=== PATIENT | male | born 1970 | race Caucasian/White ===

== ENCOUNTER 2023-10-06 15:39 | Inpatient (IN) | payer SELFPAY ==
[2023-10-06] VITALS (15 sets, daily range): BP systolic 113–159; BP diastolic 79–94; PULSE 76–98; RESP 12–18; TEMP 36.4–36.8; O2SAT 88–98; BMI 27.1; BMI 27.3
--- NOTE | 2023-10-06 15:45 | XRR_ITS ---
PROCEDURE INFORMATION: Exam: XR Chest Exam date and time: 10/06/2023 4:05 PM Age: 52 years old Clinical indication: Cough and dyspnea; Additional info: Dyspnea/cough TECHNIQUE: Imaging protocol: Radiologic exam of the chest. Views: 1 view. COMPARISON: No relevant prior studies available. FINDINGS: Tubes, catheters and devices: Overlying monitor leads. Lungs: Pulmonary vascularity is within limits. Small amount of opacity lateral left lung base. No focal infiltrate or consolidation otherwise. Pleural spaces: Unremarkable. No pleural effusion. No pneumothorax. Heart/Mediastinum: Unremarkable. No cardiomegaly. Bones/joints: Visualized osseous structures show no acute abnormality. XR/XR chest 1V portable [id number] IMPRESSION: 1. Small amount opacity lateral left lung base could indicate mild left basilar atelectasis/infiltrate. 2. No acute findings otherwise.
--- NOTE | 2023-10-06 15:46 | ECG_ITS ---
[facility] Test Date: 2023-10-06 Pat Name: Olman Bartholomew Department: Room: Gender: Male Nurse Healthcare Manager: : 1970 Requested By: Sean Umaña Order Number: [id number] Mariann MD: Servando Ahuja M.D. Measurements Intervals [place] Rate: 84 P: 74 NM: 162 QRS: 71 QRSD: 96 T: 75 QT: 350 QTc: 415 Interpretive Statements SINUS RHYTHM No previous ECG available for comparison Electronically Signed On 10-06-2023 18:37:12 CDT by Servando Ahuja M.D. [id number]
--- NOTE | 2023-10-06 15:52 | ED_ITS ---
HPI - Chest Pain 2 General: Chief Complaint: Chest Pain Stated Complaint: abd/chest pain Time Seen by Provider: 10/06/23 15:45 History of Present Illness: 52-year-old male presents emergency room complaining of chest and abdominal pain. His biggest complaint is left upper quadrant abdominal pain he states he thinks he may have been bitten by a spider on his left lateral chest wall. Patient is very anxious. Patient appears to be out of the foot of alcohol admits to drinking 7-8 beers a day minimum often drinking heavier has been drinking more recently because he lost his job. No fever sweats or chills. Patient notices pain is worse with deep inspiration Associated symptoms: Reports abdominal pain and nausea; Deny dyspnea or fever(s) Related Data Home Medications Medication Instructions Recorded Confirmed albuterol sulfate 90 mcg/actuation 2 puff inhalation QID 10/06/23 10/06/23 aerosol inhaler clonidine HCl 0.1 mg tablet 0.1 mg PO TID 10/06/23 10/06/23 Previous Rx's Medication Instructions Recorded doxycycline monohydrate 100 mg 100 mg PO BID #1 tab 10/09/23 tablet folic acid 1 mg tablet 1 mg PO DAILY #30 tabs 10/09/23 losartan 50 mg tablet 50 mg PO DAILY #30 tabs 10/09/23 pantoprazole 40 mg tablet,delayed 40 mg PO BID #60 tabs 10/09/23 release thiamine mononitrate (vit B1) 100 100 mg PO DAILY #30 tabs 10/09/23 mg tablet (Vitamin B-1 (mononitrate)) Allergies Allergy/AdvReac Type Severity Reaction Status Date / Time amoxicillin Allergy ALGY-Anaphy Verified 10/06/23 15:56 laxis Review of Systems 2 Const: Denies: fever(s) or chills Card: Reports: chest pain; Denies: edema or swelling of feet/ankles Resp: Denies: dyspnea GI: Reports: abdominal pain, nausea and GI cramping; Denies: hematemesis, coffee ground emesis or diarrhea : Denies: dysuria, urinary frequency or urinary urgency Musc: Denies: neck pain or back pain Skin/Breast: Denies: rash PFSH ED 2 PFSH: Medical History Pancreatitis Surgical History Hx of inguinal hernia surgery Physical Exam 2 Const: COMMON NORMALS: no acute distress GENERAL APPEARANCE: cooperative and comfortable ORIENTATION/CONSCIOUSNESS: Yes awake, Yes oriented to person, Yes oriented to place and Yes oriented to time HENMT: COMMON NORMALS: normocephalic, atraumatic and hearing grossly normal bilaterally HEAD & SCALP: normocephalic and atraumatic Chest: OTHER: Small irritated area on the left lateral chest wall with dry eschar in place minimal localized erythema no drainage Resp: COMMON NORMALS: normal respiratory effort, No retractions, No use of accessory muscles and clear to auscultation bilaterally AUSCULTATION: clear to auscultation bilaterally Cardio: COMMON NORMALS: regular rate, regular rhythm and No murmurs present (Cardio) RATE: regular rate RHYTHM: regular rhythm GI: COMMON NORMALS: No hepatosplenomegaly present AUSCULTATION: Yes normoactive bowel sounds PALPATION: Yes Tenderness to palpation present (GI), No Guarding due to palpation present (GI) and Yes No hepatosplenomegaly present Extremity: COMMON NORMALS: normal to inspection, capillary refill normal, no clubbing, cyanosis or edema, no calf tenderness and no pedal edema Neuro: SENSORIUM/ORIENTATION: Yes oriented to person, Yes oriented to place and Yes oriented to time Skin: COMMON NORMALS: no rashes or lesions noted GENERAL SKIN EXAM: no rashes or lesions noted Course 2 Vital Signs: Vital signs: Vital Signs Temperature 97.8 F 10/09/23 16:22 Pulse Rate 84 10/09/23 16:22 Respiratory Rate 17 10/09/23 16:22 Blood Pressure 137/89 10/09/23 16:22 Pulse Oximetry 91 10/09/23 16:22 Oxygen Delivery Me thod Room Air 10/09/23 12:00 Oxygen Flow Rate 2 10/07/23 19:43 MDM - Chest Pain Medical Decision Making Patient has acute alcohol induced gastritis and pancreatitis. Will admit n.p.o. IV fluids pain medication. CT showed hepatic steatosis. Patient previously has had a cholecystectomy no other acute pathology beyond of the acute pancreatitis is noted. Blood alcohol is 348. Initial lipase 645. Discussed with hospitalist orders written. [facility] protocol included on admission orders Lab Data I reviewed the patient's lab results. 10/08/23 03:37 10/09/23 03:18 Radiology Impressions Abdomen/Pelvis CT 10/06/23 16:59 IMPRESSION: 1. Previous cholecystectomy. Postsurgical change/mesh anterolateral upper right abdominal wall. 2. Hepatic steatosis. Ill-defined hypodensity anterolateral peripheral margin of the right lobe of the liver adjacent to the region of postsurgical changes of the abdominal wall. This may be artifactual secondary to adjacent postsurgical densities in the abdominal wall versus ill-defined hepatic lesion. Consider follow-up nonemergent hepatic ultrasound to ensure no underlying focal abnormality. 3. Bilateral simple renal cysts. 4. Mild colonic diverticula of the left and sigmoid colon without findings of diverticulitis. 5. Multiple small calcifications of the prostate gland. This can be associated with chronic prostatitis. 6. Appearance of mild thickening of the rectosigmoid colon and stomach is likely related to incomplete distension. 7. Mild opacity within the lateral left lung base on single-view chest is attributed to fat pad without findings of infiltrate/atelectasis or effusion within the visualized lung bases. 8. Degenerative disc disease lumbosacral junction. COMMENTS: Consistent with the [place] [employer]'s Incidental Findings Committee white paper (J Am Krish Radiol 2018): Any incidental renal lesion less than 1 cm or classified as too small to characterize, or any incidental cystic renal lesion characterized as simple-appearing, is likely benign. No follow-up imaging is recommended for these lesions per consensus recommendations based on imaging criteria. Liver Ultrasound 10/07/23 21:34 IMPRESSION: 1. There is coarse increased echotexture of the liver overall. This can be seen with steatosis as well as hepatic disease related changes. Consider hepatobiliary profile studies. 2. The previously described hepatic area of concern on CT is obscured currently on ultrasound. Consider MRI of the abdomen with and without contrast for further evaluation. 3. No free fluid collections are appreciated. Chest X-Ray 10/08/23 10:38 IMPRESSION: The lungs appear hyperinflated; query COPD, asthma or other obstructive lung disease. Laboratory Results WBC 6.01 10^3/uL (3.29-11.43) 10/06/23 16:05 RBC 4.94 10^6/uL (3.85-5.65) 10/06/23 16:05 Hgb 16.90 g/dL (11.27-16.99) 10/06/23 16:05 Hct 47.6 % (37-53) 10/06/23 16:05 MCV 96.4 fl (82-101) 10/06/23 16:05 MCH 34.2 pg (27-33) H 10/06/23 16:05 MCHC 35.5 g/dL (30-55) 10/06/23 16:05 RDW 13.8 % (12.1-15.1) 10/06/23 16:05 Plt Count 218 10^3/cmm (157-399) 10/06/23 16:05 MPV 8.8 fL (7.4-10.4) 10/06/23 16:05 Neut % (Auto) 61.3 % 10/06/23 16:05 Lymph % (Auto) 24.8 % 10/06/23 16:05 [place] % (Auto) 11.5 % 10/06/23 16:05 Eos % (Auto) 0.7 % 10/06/23 16:05 Baso % (Auto) 1.0 % 10/06/23 16:05 Neut # (Auto) 3.69 10^3/uL (1.8-7.7) 10/06/23 16:05 Lymph # (Auto) 1.5 10^3/uL (0.8-4.8) 10/06/23 16:05 [place] # (Auto) 0.7 10^3/uL (0.2-0.9) 10/06/23 16:05 Eos # (Auto) 0.0 10^3/uL (0.0-0.8) 10/06/23 16:05 Baso # (Auto) 0.1 10^3/uL (0.0-0.1) 10/06/23 16:05 Nucleated RBC % (auto) 0 % 10/06/23 16:05 Nucleated RBCs # 0.0 /100WBC 10/06/23 16:05 Sodium 131 mmol/L (136-145) L 10/06/23 16:05 Potassium 4.0 mmol/L (3.5-5.1) 10/06/23 16:05 Chloride 93 mmol/L (98-107) L 10/06/23 16:05 Carbon Dioxide 19 mmol/L (22-29) L 10/06/23 16:05 Anion Gap 23.0 (5-19) H 10/06/23 16:05 BUN 3 mg/dL (6-20) L 10/06/23 16:05 Creatinine 0.7 mg/dL (0.7-1.2) 10/06/23 16:05 GFR Calculation 118.9 mL/min (90-130) 10/06/23 16:05 Glucose 130 mg/dL (65-115) H 10/06/23 16:05 Calculated Osmolality 270 mOsm/kg (285-295) L 10/06/23 16:05 Calcium 8.6 mg/dL (8.5-10.5) 10/06/23 16:05 Total Bilirubin 0.6 mg/dL (0.15-1.2) 10/06/23 16:05 AST 104 U/L (0-40) H 10/06/23 16:05 ALT 76 U/L (0-41) H 10/06/23 16:05 Alkaline Phosphatase 86 U/L (40-130) 10/06/23 16:05 Troponin T Baseline 15 ng/L (0-15) 10/06/23 16:05 Total Protein 7.0 g/dL (6.6-8.7) 10/06/23 16:05 Albumin 4.2 g/dL (3.5-5.2) 10/06/23 16:05 Globulin 2.8 g/dL (1.3-4.6) 10/06/23 16:05 Lipase 645 U/L (13-60) H 10/06/23 16:05 Ethyl Alcohol 348 mg/dL (0-10) H* 10/06/23 16:05 Coronavirus 229E (PCR) Not detected (NOT DETECT) 10/06/23 14:14 SARS-CoV-2 (PCR) Not detected (NOT DETECT) 10/06/23 14:14 All radiology interpretation(s) finalized by discharge Discharge Plan Discharge Patient Disposition: Admitted As Inpatient Admit Provider: Tabatha Cisneros Clinical Impression: Acute pancreatitis, Alcohol intoxication, Alcoholic gastritis Condition: Stable Discharge Diet: Cardiac Discharge Activity: Increase activity as tolerated Coding Level of Care Code ED Textile Examiner for Shilpa Roe
[2023-10-06 16:14] LABS: Basophils # 0.1 10^3/uL (0.0-0.1); Eosinophils % 0.7 %; Hematocrit 47.6 % (37-53); Lymphocytes # 1.5 10^3/uL (0.8-4.8); Lymphocytes % 24.8 %; Mean Corpuscular HGB Conc 35.5 g/dL (30-55); Mean Corpuscular Hemoglobin 34.2 pg (27-33); Mean Corpuscular Volume 96.4 fl (82-101); Mean Platelet Volume 8.8 fL (7.4-10.4); Monocytes # 0.7 10^3/uL (0.2-0.9); Monocytes % 11.5 %; Neutrophils # 3.69 10^3/uL (1.8-7.7); Neutrophils % 61.3 %; Nucleated Red Blood Cells % 0 %; Platelet Count 218 10^3/cmm (157-399); Red Blood Count 4.94 10^6/uL (3.85-5.65); Red Cell Distribution Width 13.8 % (12.1-15.1); White Blood Count 6.01 10^3/uL (3.29-11.43)
[2023-10-06 16:34] LABS: Troponin(5th) Baseline 15 ng/L (0-15)
[2023-10-06 16:36] LABS: Alanine Aminotransferase 76 U/L (0-41); Albumin Level 4.2 g/dL (3.5-5.2); Alkaline Phosphatase 86 U/L (40-130); Aspartate Amino Transferase 104 U/L (0-40); Blood Urea Nitrogen 3 mg/dL (6-20); Calcium 8.6 mg/dL (8.5-10.5); Carbon Dioxide 19 mmol/L (22-29); Chloride 93 mmol/L (98-107); Creatinine Clr Calc Pharmacy 146.2976; Globulin 2.8 g/dL (1.3-4.6); Glomerular Filtration Rate 118.9 mL/min (90-130); Glucose 130 mg/dL (65-115); Osmolality Calculated 270 mOsm/kg (285-295); Sodium 131 mmol/L (136-145); Total Bilirubin 0.6 mg/dL (0.15-1.2)
[2023-10-06 16:48] LABS: Lipase 645 U/L (13-60)
[2023-10-06 16:49] LABS: Alcohol Level 348 mg/dL (0-10)
--- NOTE | 2023-10-06 16:59 | CTR_ITS ---
PROCEDURE INFORMATION: Exam: CT Abdomen And Pelvis Without Contrast Exam date and time: 10/06/2023 5:05 PM Age: 52 years old Clinical indication: Abdominal pain; Localized; Right upper quadrant (ruq); Prior surgery; Surgery date: 6+ months; Surgery type: Gb TECHNIQUE: Imaging protocol: Computed tomography of the abdomen and pelvis without contrast. Radiation optimization: All CT scans at this facility use at least one of these dose optimization techniques: automated exposure control; mA and/or kV adjustment per patient size (includes targeted exams where dose is matched to clinical indication); or iterative reconstruction. COMPARISON: CR XR chest 1V portable [id number] 10/06/2023 4:05 PM RADIATION DOSE METRICS: Total DLP (mGy-cm): 646.73 FINDINGS: Lungs: No significant atelectasis or infiltrate or effusion is seen within the visualized lung bases, particularly on the left as questioned on single-view chest. Findings on single-view chest likely related to fat pad therefore. Liver: Suggestion of fatty infiltration of the liver. Ill-defined hypodensity is seen anterolateral peripheral margin of the liver adjacent to postsurgical change or mesh within the abdominal wall. This may be artifactual versus ill-defined hepatic lesion. Anterior to posterior diameter of the right lobe of the liver is 20 cm, suggesting mild enlargement of the liver. Gallbladder and biliary ducts: Previous cholecystectomy. No significant biliary ductal dilatation. Pancreas: No pancreatic enlargement or edema or peripancreatic mesenteric stranding. No significant focal abnormality or pancreatic ductal dilatation. Spleen: Normal. No splenomegaly. Adrenal glands: Normal. No mass. Kidneys and ureters: A rounded hypodense focus of fluid density with exophytic appearance noted from the upper pole cortex of the right kidney anteriorly suggesting simple cyst of approximately 2.5 cm. A rounded hypodense focus is seen within the lateral cortex of the upper pole of the left kidney measuring fluid density with Hounsfield measurements and suggestive of an additional renal cyst of approximately 1.5 cm. No ureteral calculus or obstructive uropathy or perinephric stranding. Stomach and bowel: Mild colonic diverticula of the left and sigmoid colon. No CT findings of significant focal inflammation or diverticulitis. Mild gastric thickening versus more likely related to incomplete gastric distension. Mild thickening rectosigmoid colon versus more likely related to incomplete distension. No bowel obstruction. Appendix: The appendix is visualized and appears unremarkable. No evidence of appendicitis. Intraperitoneal space: No free fluid or ascites. No free air. Vasculature: Abdominal aorta appears unremarkable in caliber. Small amount of calcification distal abdominal aorta and proximal iliac arteries. Lymph nodes: Unremarkable. No enlarged lymph nodes. Urinary bladder: Unremarkable as visualized. Reproductive: Multiple small calcifications prostate gland. These can be associated with chronic prostatitis. No significant prostatomegaly. Bones/joints: Bone windows show no acute osseous abnormality. Degenerative disc disease lumbosacral junction. Soft tissues: Postsurgical changes/mesh within the anterolateral upper right abdominal wall. CT/CT abdomen pelvis wo con [id number] IMPRESSION: 1. Previous cholecystectomy. Postsurgical change/mesh anterolateral upper right abdominal wall. 2. Hepatic steatosis. Ill-defined hypodensity anterolateral peripheral margin of the right lobe of the liver adjacent to the region of postsurgical changes of the abdominal wall. This may be artifactual secondary to adjacent postsurgical densities in the abdominal wall versus ill-defined hepatic lesion. Consider follow-up nonemergent hepatic ultrasound to ensure no underlying focal abnormality. 3. Bilateral simple renal cysts. 4. Mild colonic diverticula of the left and sigmoid colon without findings of diverticulitis. 5. Multiple small calcifications of the prostate gland. This can be associated with chronic prostatitis. 6. Appearance of mild thickening of the rectosigmoid colon and stomach is likely related to incomplete distension. 7. Mild opacity within the lateral left lung base on single-view chest is attributed to fat pad without findings of infiltrate/atelectasis or effusion within the visualized lung bases. 8. Degenerative disc disease lumbosacral junction. COMMENTS: Consistent with the [place] [employer]'s Incidental Findings Committee white paper (J Am Krish Radiol 2018): Any incidental renal lesion less than 1 cm or classified as too small to characterize, or any incidental cystic renal lesion characterized as simple-appearing, is likely benign. No follow-up imaging is recommended for these lesions per consensus recommendations based on imaging criteria.
[2023-10-06] MEDS: ondansetron 2 mg/ML SDV 2 mL 4 MG IVP (17:36)
[2023-10-06] MEDS: morphine 4 mg/mL SDV 1 mL IVP ×2 (17:36→23:56)
[2023-10-06] MEDS: levofloxacin-dextrose 5 % 500 MG/100 ML PREMIX 100 MG IV (17:43)
--- NOTE | 2023-10-06 17:46 | ECG_ITS ---
[facility] Test Date: 2023-10-06 Pat Name: Olman Bartholomew Department: Room: Gender: Male Safety Intern: : 1970 Requested By: Sean Umaña Order Number: [id number] Mariann MD: Servando Ahuja M.D. Measurements Intervals [place] Rate: 78 P: 62 W[place]: 152 QRS: 69 QRSD: 97 T: 69 QT: 368 QTc: 421 Interpretive Statements SINUS RHYTHM No previous ECG available for comparison Electronically Signed On 10-06-2023 18:37:22 CDT by Servando Ahuja M.D. [id number]
[2023-10-06] MEDS: HYDROmorphone 1 mg/mL INJ 1 mL 0.5 MG IVP ×2 (18:21→21:21)
[2023-10-06] MEDS: pantoprazole 40 mg SDV 80 MG IVP (18:22)
[2023-10-06] MEDS: nicotine 21 mg Patch 1 PATCH TRANSDERMA (18:22)
--- NOTE | 2023-10-06 18:26 | P.HP_ITS ---
Providers/Chief Complaint 2 Admitting Physician: Tabatha Cisneros MD Chief Complaint: abd/chest pain History of Present Illness Olman Bartholomew is a 52 year old male presented with chief complaint of abdominal pain nausea and vomiting. Patient stating that he is from [place], he was sent here for a job and then recently got fired because he was not able to go to his job for about 2 days, patient's is endorsing drinking 2 more than 12 packs of beer every day, smokes more than 2 packs/day, patient is stating that once he is discharged she will go back to [place]. In the hospital he has been diagnosed with hepatitis related to alcohol. He is not intoxicated. Patient is stating that he has had multiple episode of pancreatitis in the past as well. Review of Systems 2 Const: Denies: fever(s) Eyes: Denies: change in vision ENMT: Denies: mouth pain Card: Denies: chest pain Resp: Denies: dyspnea GI: Reports: abdominal pain, nausea and vomiting Medications/Allergies Allergies Allergy/AdvReac Type Severity Reaction Status Date / Time amoxicillin Allergy ALGY-Anaphy Verified 10/06/23 15:56 laxis PFSH Acute 2 PFSH: Medical History Pancreatitis Surgical History Hx of inguinal hernia surgery Vitals/I&O/Wt Last Vital Signs Temp 98.3 F 10/06/23 15:44 Pulse 93 10/06/23 18:00 Resp 17 10/06/23 18:21 BP 159/89 10/06/23 18:00 Pulse Ox 98 10/06/23 18:21 O2 Del Method Room Air 10/06/23 15:44 Weight last 48 hrs Weight 90.718 kg Physical Exam 2 Narrative: Awake and alert Dehydrated Epigastric tenderness Pleasant cooperative nonfocal neuroexam Currently on room air Anxious appearing Hypertensive No active chest pain or shortness of breath S1, S2 tachycardia Data 10/06/23 16:05 10/06/23 16:05 Micro: Microbiology 10/06/23 16:07 Blood Culture - Preliminary Blood SPECIMEN COLLECTED 10/06/23 16:05 Blood Culture - Preliminary Blood SPECIMEN COLLECTED A&P Assessment and plan (1) Alcoholic hepatitis without ascites: (2) Alcohol intoxication: (3) Pancreatitis: Plan Alcoholic hepatitis I will hold off on adding steroids at this point, trend liver enzymes Treat conservatively with n.p.o. status start IV fluids Treat pain with opioids High lipase without significant edema on CT abdomen pelvis No signs of necrotic pancreas or sepsis Hypotension could be related to pain I will keep him on oxycodone and IV Dilaudid N.p.o. DVT prophylaxis Lovenox Full code Patient is doing that once he is discharged to go back to [place] Anticipated discharge likely on Monday alcohol intoxication Alcohol intoxication Drinking more than 12 beers per day Smokes 2 packs/day Start nicotine patch 21 mg Add CIWA protocol Attestations 2 Medical Necessity Statement*: Anticipating more than 2 midnights in the hospital Diagnoses Alcoholic hepatitis without ascites K70.10 Alcohol intoxication F10.929 Pancreatitis K85.90
[2023-10-06 18:55] LABS: Troponin 5 2HR 15.61 ng/L (0-15); Troponin 5 2HR Delta 0.61 ABS# (0-10)
[2023-10-06 20:27] LABS: Adenovirus Not Detected (NOT DETECT); Chlamydia Pneumoniae Not Detected (NOT DETECT); Coronavirus 229E,HKU1,NL63,OC4 Not Detected (NOT DETECT); Human Metapneumovirus Not Detected (NOT DETECT); Human Rhinovirus/Enterovirus Not Detected (NOT DETECT); Influenza A Not Detected (NOT DETECT); Influenza A H1 Not Detected (NOT DETECT); Influenza A H1-2009 Not Detected (NOT DETECT); Influenza A H3 Not Detected (NOT DETECT); Influenza B Not Detected (NOT DETECT); Mycoplasma Pneumoniae Not Detected (NOT DETECT); Parainfluenza Virus Type 1 Not Detected (NOT DETECT); Parainfluenza Virus Type 2 Not Detected (NOT DETECT); Parainfluenza Virus Type 3 Not Detected (NOT DETECT); Parainfluenza Virus Type 4 Not Detected (NOT DETECT); Respiratory Syncytial Virus A Not Detected (NOT DETECT); Respiratory Syncytial Virus B Not Detected (NOT DETECT); SARS-COV-2 Not Detected (NOT DETECT)
[2023-10-06] MEDS: metroNIDAZOLE IV 500 MG/100 ML PREMIX 100 MG IV (21:18)
[2023-10-06] MEDS: LORazepam 2 mg/mL INJ 1 mL IVP (21:56)
[2023-10-06] MEDS: dextrose 5%-lactated ringers 1,000 ML 100 ML IV (22:05)
[2023-10-06] MEDS: enoxaparin 40 mg/0.4 mL Syringe SUBCUT (22:05)
--- NOTE | 2023-10-06 22:06 | ECG_ITS ---
[facility] Test Date: 2023-10-06 Pat Name: Olman Bartholomew Department: Room: 259 Gender: Male Biology Lecturer: : 1970 Requested By: Sean Umaña Order Number: [id number] Mariann MD: Servando Ahuja M.D. Measurements Intervals [place] Rate: 75 P: 65 NM: 157 QRS: 68 QRSD: 94 T: 72 QT: 367 QTc: 411 Interpretive Statements SINUS RHYTHM Compared to ECG 10/06/2023 17:49:29 No significant changes Electronically Signed On 10-07-2023 8:00:03 CDT by Servando Ahuja M.D. [email or web address]/[id number]
[2023-10-06] MEDS: oxyCODONE-APAP 5-325 mg Tablet 1 TAB PO (22:20)
[2023-10-06 22:45] LABS: Troponin 5 6HR 14.49 ng/L (0-15); Troponin 5 6HR Delta -0.51 ng/L (0-12)
[2023-10-06 22:52] LABS: Estmated Average Glucose 123; Hemoglobin A1C 5.9 % (4.0-6.0)
[2023-10-06 23:06] LABS: HIV 1 & 2 Antibody Non-Reactive (Non-Reactiv); HIV 1 & 2 Antigen Non-Reactive (Non-Reactiv)
[2023-10-06 23:07] LABS: Hepatitis A Antibody IgM Non-Reactive (Nonreactive); Hepatitis B Core AB, Total Non-Reactive (Nonreactive); Hepatitis B Surface AB < 3.5 (11.5-1000); Hepatitis B Surface Antigen Non-Reactive (Nonreactive); Hepatitis C Virus Antibody Non-Reactive (Nonreactive)
[2023-10-07] VITALS (17 sets, daily range): BP systolic 133–159; BP diastolic 82–96; PULSE 73–111; RESP 15–19; TEMP 36.7–37.1; O2SAT 91–93
[2023-10-07] MEDS: oxyCODONE-APAP 5-325 mg Tablet 1 TAB PO ×5 (02:26→20:36)
[2023-10-07] MEDS: LORazepam 2 mg/mL INJ 1 mL IVP (02:32)
[2023-10-07] MEDS: HYDROmorphone 1 mg/mL INJ 1 mL 0.5 MG IVP ×4 (04:12→22:05)
[2023-10-07 05:08] LABS: Basophils % 0.8 %; Eosinophils # 0.1 10^3/uL (0.0-0.8); Eosinophils % 1.4 %; Hematocrit 48.5 % (37-53); Lymphocytes # 1.1 10^3/uL (0.8-4.8); Lymphocytes % 21.4 %; Mean Corpuscular Volume 99.8 fl (82-101); Mean Platelet Volume 9.1 fL (7.4-10.4); Monocytes # 0.5 10^3/uL (0.2-0.9); Monocytes % 8.8 %; Neutrophils # 3.42 10^3/uL (1.8-7.7); Nucleated Red Blood Cells % 0 %; Platelet Count 191 10^3/cmm (157-399); Red Blood Count 4.86 10^6/uL (3.85-5.65); Red Cell Distribution Width 14.2 % (12.1-15.1)
[2023-10-07 05:30] LABS: Alanine Aminotransferase 100 U/L (0-41); Albumin Level 4.3 g/dL (3.5-5.2); Alkaline Phosphatase 111 U/L (40-130); Anion Gap 18.4 (5-19); Aspartate Amino Transferase 124 U/L (0-40); Blood Urea Nitrogen 4 mg/dL (6-20); Calcium 9.2 mg/dL (8.5-10.5); Carbon Dioxide 25 mmol/L (22-29); Chloride 104 mmol/L (98-107); Creatinine Clr Calc Pharmacy 145.1166; Globulin 2.7 g/dL (1.3-4.6); Glomerular Filtration Rate 118.9 mL/min (90-130); Glucose 107 mg/dL (65-115); Osmolality Calculated 293 mOsm/kg (285-295); Phosphorus 4.6 mg/dL (2.5-4.5); Potassium 4.4 mmol/L (3.5-5.1); Sodium 143 mmol/L (136-145); Total Bilirubin 0.7 mg/dL (0.15-1.2)
[2023-10-07] MEDS: ipratropium-albuterol 3 mL Neb INHALATION (07:42)
--- NOTE | 2023-10-07 08:00 | P.PN_ITS ---
Subjective 2 Subjective: Will do trial of clear liquids today Picture coming of pain Tachycardic Blood pressure slightly better No active vomiting Vitals/I&O/Wt Last Vital Signs Temp 98.1 F 10/07/23 07:44 Pulse 109 H 10/07/23 07:49 Resp 17 10/07/23 07:44 BP 147/89 10/07/23 07:44 Pulse Ox 92 10/07/23 07:44 O2 Del Method Nasal Cannula 10/07/23 07:44 O2 Flow Rate 1 10/07/23 07:42 10/06/23 10/07/23 10/07/23 22:59 06:59 14:59 Intake Total 0 / 0 200 / 200 Output Total 0 / 0 Balance 0 / 0 200 / 200 Weight last 48 hrs Weight 89.046 kg Weight 91.308 kg Weight 90.718 kg Physical Exam 2 Narrative: Epigastric tenderness Awake and alert No active vomiting Hypertensive Tachycardia Currently on room air S1, S2 GCS 15 nonfocal neuroexam Data 10/07/23 04:49 10/07/23 04:49 Micro: Microbiology 10/06/23 16:07 Blood Culture - Preliminary Blood SPECIMEN COLLECTED 10/06/23 16:05 Blood Culture - Preliminary Blood SPECIMEN COLLECTED A&P Assessment and plan (1) Alcoholic hepatitis without ascites: (2) Pancreatitis: (3) Alcohol intoxication: Plan Alcoholic hepatitis/hepatitis Patient is not meeting criteria to start steroids Conservative management Pancreatitis no active nausea vomiting Continue D5 LR Continue opioids CIWA score is not high continue thiamine and folic acid No need of ICU at this time Autonomic dysfunction 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
[2023-10-07] MEDS: nicotine 21 mg Patch 1 PATCH TRANSDERMA (08:09)
[2023-10-07] MEDS: folic acid 1 mg Tablet PO (08:09)
[2023-10-07] MEDS: thiamine 100 mg Tablet PO (08:09)
[2023-10-07] MEDS: multivitamin therapeutic Tablet 1 TAB PO (08:09)
[2023-10-07] MEDS: pantoprazole 40 mg SDV IVP ×2 (08:10→17:24)
[2023-10-07] MEDS: ondansetron 2 mg/ML SDV 2 mL 4 MG IVP (08:21)
[2023-10-07] MEDS: dextrose 5%-lactated ringers 1,000 ML 100 ML IV ×2 (08:23→20:37)
[2023-10-07] MEDS: LORazepam 2 mg Tablet PO ×2 (16:12→22:13)
[2023-10-07] MEDS: enoxaparin 40 mg/0.4 mL Syringe SUBCUT (20:37)
--- NOTE | 2023-10-07 21:34 | USR_ITS ---
PROCEDURE INFORMATION: Exam: US Abdomen, Limited; Right Upper Quadrant Exam date and time: 10/07/2023 6:33 AM Age: 52 years old Clinical indication: Abdominal pain; Epigastric; Prior surgery; Surgery date: 6+ months; Surgery type: Unsure of dates. Patient has had his gallbladder removed and hernia mesh placed. ; Additional info: Alcoholic hepatitis. No history of recent trauma or surgery is otherwise provided. TECHNIQUE: Imaging protocol: Real time ultrasound of the abdomen with image documentation. Limited exam focused on the right upper quadrant. 66image(s) are provided. Other technique: Grayscale, color images are provided. COMPARISON: CT abdomen pelvis wo con [id number] 10/06/2023 5:05 PM. No previous ultrasound is currently available. FINDINGS: Liver: The liver measures 17 cm. The hepatic echotexture is coarse with increased echotexture, heterogeneous appearance. The previously described hepatic area of concern is obscured currently on ultrasound with significant bowel-gas, penetration artifact. Gallbladder: There is history of cholecystectomy with some clips present. No history of localized tenderness is currently provided. Biliary ducts: No biliary ductal dilatation or echogenic calculus is appreciated. The common bile duct measures 0.5 cm. Pancreas: The pancreas is largely obscured. Right kidney: The right kidney measures 10.3 x 6 x 5 cm. No interval echogenic obstructive calculus or hydronephrosis is appreciated. There appears to be an anechoic cyst right superiorly of around 2.4 cm in diameter. Aorta: The proximal aorta measures 2.0 cm, mid aorta 1.7 cm, and distal obscured. Adjacent IVC is demonstrated. Portal venous: The portal venous flow velocity is within normal. Intraperitoneal space: There is some bowel-gas, penetration limiting artifact. No free fluid is appreciated. No other significant interval changes are appreciated. US/US liver [id number] IMPRESSION: 1. There is coarse increased echotexture of the liver overall. This can be seen with steatosis as well as hepatic disease related changes. Consider hepatobiliary profile studies. 2. The previously described hepatic area of concern on CT is obscured currently on ultrasound. Consider MRI of the abdomen with and without contrast for further evaluation. 3. No free fluid collections are appreciated.
[2023-10-08] VITALS (17 sets, daily range): BP systolic 128–152; BP diastolic 83–96; PULSE 79–92; RESP 15–18; TEMP 36.7–37; O2SAT 91–93
[2023-10-08] MEDS: oxyCODONE-APAP 5-325 mg Tablet 1 TAB PO ×5 (02:26→22:50)
[2023-10-08 04:24] LABS: Basophils % 0.6 %; Eosinophils # 0.2 10^3/uL (0.0-0.8); Eosinophils % 3.2 %; Hematocrit 47.1 % (37-53); Lymphocytes # 0.9 10^3/uL (0.8-4.8); Lymphocytes % 19.7 %; Mean Corpuscular HGB Conc 33.3 g/dL (30-55); Mean Corpuscular Hemoglobin 33.4 pg (27-33); Mean Corpuscular Volume 100.2 fl (82-101); Mean Platelet Volume 9.3 fL (7.4-10.4); Monocytes # 0.5 10^3/uL (0.2-0.9); Monocytes % 10.8 %; Neutrophils % 65.1 %; Nucleated Red Blood Cells % 0 %; Platelet Count 158 10^3/cmm (157-399); Red Cell Distribution Width 13.9 % (12.1-15.1); White Blood Count 4.62 10^3/uL (3.29-11.43)
[2023-10-08 04:33] LABS: INR 0.99 (0.8-1.2)
[2023-10-08 04:47] LABS: Alanine Aminotransferase 66 U/L (0-41); Alkaline Phosphatase 91 U/L (40-130); Anion Gap 15.8 (5-19); Aspartate Amino Transferase 59 U/L (0-40); Blood Urea Nitrogen 5 mg/dL (6-20); Carbon Dioxide 27 mmol/L (22-29); Chloride 100 mmol/L (98-107); Creatinine Clr Calc Pharmacy 146.6183; Globulin 2.5 g/dL (1.3-4.6); Glomerular Filtration Rate 118.9 mL/min (90-130); Glucose 101 mg/dL (65-115); Osmolality Calculated 285 mOsm/kg (285-295); Potassium 3.8 mmol/L (3.5-5.1); Sodium 139 mmol/L (136-145); Total Bilirubin 0.7 mg/dL (0.15-1.2); Total Protein 6.5 g/dL (6.6-8.7)
[2023-10-08] MEDS: dextrose 5%-lactated ringers 1,000 ML 100 ML IV (07:42)
[2023-10-08] MEDS: thiamine 100 mg Tablet PO (07:43)
[2023-10-08] MEDS: multivitamin therapeutic Tablet 1 TAB PO (07:43)
[2023-10-08] MEDS: ondansetron 2 mg/ML SDV 2 mL 4 MG IVP ×2 (07:43→17:27)
[2023-10-08] MEDS: HYDROmorphone 1 mg/mL INJ 1 mL 0.5 MG IVP ×4 (07:43→21:49)
[2023-10-08] MEDS: folic acid 1 mg Tablet PO (07:43)
[2023-10-08] MEDS: nicotine 21 mg Patch 1 PATCH TRANSDERMA (07:43)
[2023-10-08] MEDS: pantoprazole 40 mg SDV IVP (07:43)
[2023-10-08] MEDS: ipratropium-albuterol 3 mL Neb INHALATION (08:11)
--- NOTE | 2023-10-08 10:15 | P.PN_ITS ---
Subjective 2 Subjective: seen at bedside. patient did not have any events over night tolerated clears but did not enjoy the tastse oxygen has been hovering around 92%. Hx of COPD with intermittent albuterol usage. slightly more SOB this AM, possible PNA per ED CXR. does not feel ready to leave hospital yet. desires to stay overnight so he can drive to [place] in AM blood pressure slightly improved, slightly anxious no emesis Medications: Reviewed: Yes Vitals/I&O/Wt Last Vital Signs Temp 98.4 F 10/08/23 07:12 Pulse 85 10/08/23 08:16 Resp 18 10/08/23 08:11 BP 152/87 10/08/23 07:12 Pulse Ox 91 10/08/23 08:11 O2 Del Method Room Air 10/08/23 08:11 O2 Flow Rate 2 10/07/23 19:43 10/07/23 10/08/23 10/08/23 22:59 06:59 14:59 Intake Total 1156.667 / 2636.667 1200 / 3836.667 440 / 440 Output Total 1225 / 1225 1225 / 2450 Balance -68.333 / 1411.667 -25 / 1386.667 440 / 440 Weight last 48 hrs Weight 201 lb Weight 196 lb 5 oz Weight 201 lb 4.8 oz Weight 200 lb Physical Exam 2 Narrative: General: AOx3, no acute distress, well developed, well nourished, appears stated age psych: appropriate mood and affect. good judgment and insight. No suicidal or homicidal ideation. CVD: RRR, normal S1 and S2, no M/R/G. 2+ pulse x 4 extremities, no JVD, no carotid bruit. Lungs: rhonchi in bilateral lungs, no crackles. slight wheezing. Abdomen: NT, ND, soft, NABS. No hepatosplenomegaly, no mass. umbilicus midline w/o herniation Neuro: CNII-XII grossly intact. GSC 15 Skin: 2cm x 1cm erythematous lesion with no evidence of purlent drainage on L chest wall, fluctant, ttp. Data 10/08/23 03:37 10/08/23 03:37 Micro: Microbiology 10/06/23 16:05 Blood Culture - Preliminary Blood NEGATIVE TO DATE 10/06/23 16:07 Blood Culture - Preliminary Blood NEGATIVE TO DATE A&P Assessment and plan (1) Alcoholic hepatitis without ascites: (2) Pancreatitis: (3) Alcohol intoxication: Plan Alcoholic hepatitis/hepatitis liver US today showed steatohepatitis. some area of concern on CT not seen on US. requesting MRI w and w/o constrast. this can be done as outpatient as non- emergent CIWA 5 today, improving but still anxious will stop D5 LR 100ml/hr. tolerating fluids advance diet as tolerated started on losartan 50mg qd continue opioids for now continue thaimine and folic acid conservative management CXR today shows COPD, no evidence of aspiration of CAP soft tissue infection L chest wall. doxy BID x 1 week as pt has penicillin allergy and does not respond well to clindamycin. Full code DVT ppx via lovenox Attestations 2 Medical Necessity Statement*: will require 2 overnights stays for CIWA protocol Coding Level of Care Code 04025 Diagnoses Alcoholic hepatitis without ascites K70.10 Pancreatitis K85.90 Alcohol intoxication F10.929
--- NOTE | 2023-10-08 10:38 | XRR_ITS ---
PROCEDURE INFORMATION: Exam: XR Chest Exam date and time: 10/08/2023 11:20 AM Age: 52 years old Clinical indication: Injury or trauma; Other: Rhonci; Other: Rhoonci; Additional info: Rhonchi TECHNIQUE: Imaging protocol: Radiologic exam of the chest. Views: 1 view. COMPARISON: CR XR chest 1V portable [id number] 10/06/2023 4:05 PM FINDINGS: Lungs: Subsegmental atelectasis or scarring at the left base. The lungs appear hyperinflated. Pleural spaces: No pleural effusion. No pneumothorax. Heart/Mediastinum: The cardiac silhouette is unchanged. No gross evidence of pneumomediastinum. Bones/joints: No gross fracture. XR/XR chest 1V portable [id number] IMPRESSION: The lungs appear hyperinflated; query COPD, asthma or other obstructive lung disease.
[2023-10-08 10:49] LABS: Hepatitis A Antibody IgM Non-Reactive (Nonreactive); Hepatitis B Core IgM Non-Reactive (Nonreactive); Hepatitis B Surface Antigen Non-Reactive (Nonreactive); Hepatitis C Virus Antibody Non-Reactive (Nonreactive)
[2023-10-08] MEDS: losartan 50 mg Tablet PO (11:29)
[2023-10-08] MEDS: LORazepam 2 mg Tablet PO ×2 (14:56→22:50)
[2023-10-08] MEDS: pantoprazole DR 40 mg Tablet PO (17:27)
[2023-10-08] MEDS: doxycycline 100 mg Tablet PO (17:27)
[2023-10-08] MEDS: enoxaparin 40 mg/0.4 mL Syringe SUBCUT (21:54)
[2023-10-09] VITALS (10 sets, daily range): BP systolic 128–156; BP diastolic 84–90; PULSE 76–98; RESP 13–18; TEMP 36.6–36.9; O2SAT 90–91
[2023-10-09] MEDS: oxyCODONE-APAP 5-325 mg Tablet 1 TAB PO ×2 (03:20→11:58)
[2023-10-09] MEDS: HYDROmorphone 1 mg/mL INJ 1 mL 0.5 MG IVP ×2 (04:33→08:16)
[2023-10-09 04:56] LABS: Alanine Aminotransferase 57 U/L (0-41); Albumin Level 4.1 g/dL (3.5-5.2); Alkaline Phosphatase 87 U/L (40-130); Aspartate Amino Transferase 47 U/L (0-40); Blood Urea Nitrogen 6 mg/dL (6-20); Calcium 9.3 mg/dL (8.5-10.5); Carbon Dioxide 27 mmol/L (22-29); Chloride 102 mmol/L (98-107); Creatinine Clr Calc Pharmacy 147.8678; Globulin 2.7 g/dL (1.3-4.6); Glomerular Filtration Rate 118.9 mL/min (90-130); Glucose 91 mg/dL (65-115); Osmolality Calculated 291 mOsm/kg (285-295); Sodium 142 mmol/L (136-145); Total Bilirubin 0.6 mg/dL (0.15-1.2); Total Protein 6.8 g/dL (6.6-8.7)
[2023-10-09] MEDS: pantoprazole DR 40 mg Tablet PO (08:16)
[2023-10-09] MEDS: losartan 50 mg Tablet PO (08:16)
[2023-10-09] MEDS: multivitamin therapeutic Tablet 1 TAB PO (08:16)
[2023-10-09] MEDS: nicotine 21 mg Patch 1 PATCH TRANSDERMA (08:16)
[2023-10-09] MEDS: ondansetron 2 mg/ML SDV 2 mL 4 MG IVP (08:16)
[2023-10-09] MEDS: folic acid 1 mg Tablet PO (08:16)
[2023-10-09] MEDS: doxycycline 100 mg Tablet PO (08:16)
[2023-10-09] MEDS: thiamine 100 mg Tablet PO (08:16)
--- NOTE | 2023-10-09 12:24 | PM.DCS ---
Discharge Providers Date of Admission: 10/06/23 18:24 Date of Discharge: October 09, 2023 Attending Provider at Admission: Tabatha Cisneros MD Attending Provider at Discharge: Bob Smallwood MD Diagnoses at Discharge Discharge Diagnosis (1) Alcoholic hepatitis without ascites: Status: Acute (2) Pancreatitis: Status: Acute (3) Alcohol intoxication: Status: Acute Reason for Visit Reason for Visit: abd/chest pain Hospital Course Hospital Course Patient presented to hospital with nausea and vomiting. He had been drinking a significant amount of alcohol. He had a history of pancreatitis in the past. Lipase was elevated. No signs of necrotic pancreas or sepsis. He was treated with IV pain medicine, IV Protonix, fluids. He was treated for alcohol withdrawal. With all of these things he improved significantly and by October 08 he was able to tolerate diet, drinking a significant amount of liquids. He was on doxycycline for a small fluctuant area left chest wall. No fevers were noted. It was thought he could continue to recover at home, avoid all alcohol, continue Protonix twice daily, low-fat diet with gradual increase, and follow-up with his primary care provider. He was able to ask questions and agreed with the plan. Physical Exam Narrative: General Exam no distress Neck is supple Cardiovascular regular rate and rhythm Lungs clear Abdomen is soft Extremities no cyanosis clubbing Discharge Data Studies Completed and Pending Completed Studies During Hospitalization Category Date Time Status CT abdomen pelvis wo con [id number] Stat Cat Scan 10/06/23 16:59 Completed XR chest 1V portable [id number] Routine Exams 10/08/23 10:38 Completed XR chest 1V portable [id number] Stat Exams 10/06/23 15:45 [place] liver [id number] Routine Ultrasound 10/07/23 21:34 Completed Pending at discharge Category Date Time Status Blood Culture Stat Lab 10/06/23 16:07 Results Sputum Culture and Gram Stain Stat Lab 10/07/23 10:23 Results Radiology Impressions Abdomen/Pelvis CT 10/06/23 16:59 IMPRESSION: 1. Previous cholecystectomy. Postsurgical change/mesh anterolateral upper right abdominal wall. 2. Hepatic steatosis. Ill-defined hypodensity anterolateral peripheral margin of the right lobe of the liver adjacent to the region of postsurgical changes of the abdominal wall. This may be artifactual secondary to adjacent postsurgical densities in the abdominal wall versus ill-defined hepatic lesion. Consider follow-up nonemergent hepatic ultrasound to ensure no underlying focal abnormality. 3. Bilateral simple renal cysts. 4. Mild colonic diverticula of the left and sigmoid colon without findings of diverticulitis. 5. Multiple small calcifications of the prostate gland. This can be associated with chronic prostatitis. 6. Appearance of mild thickening of the rectosigmoid colon and stomach is likely related to incomplete distension. 7. Mild opacity within the lateral left lung base on single-view chest is attributed to fat pad without findings of infiltrate/atelectasis or effusion within the visualized lung bases. 8. Degenerative disc disease lumbosacral junction. COMMENTS: Consistent with the [employer]'s Incidental Findings Committee white paper (J Am Krish Radiol 2018): Any incidental renal lesion less than 1 cm or classified as too small to characterize, or any incidental cystic renal lesion characterized as simple-appearing, is likely benign. No follow-up imaging is recommended for these lesions per consensus recommendations based on imaging criteria. Liver Ultrasound 10/07/23 21:34 IMPRESSION: 1. There is coarse increased echotexture of the liver overall. This can be seen with steatosis as well as hepatic disease related changes. Consider hepatobiliary profile studies. 2. The previously described hepatic area of concern on CT is obscured currently on ultrasound. Consider MRI of the abdomen with and without contrast for further evaluation. 3. No free fluid collections are appreciated. Chest X-Ray 10/08/23 10:38 IMPRESSION: The lungs appear hyperinflated; query COPD, asthma or other obstructive lung disease. Laboratory Results WBC 4.62 10^3/uL (3.29-11.43) 10/08/23 03:37 RBC 4.70 10^6/uL (3.85-5.65) 10/08/23 03:37 Hgb 15.70 g/dL (11.27-16.99) 10/08/23 03:37 Hct 47.1 % (37-53) 10/08/23 03:37 MCV 100.2 fl (82-101) 10/08/23 03:37 MCH 33.4 pg (27-33) H 10/08/23 03:37 MCHC 33.3 g/dL (30-55) 10/08/23 03:37 RDW 13.9 % (12.1-15.1) 10/08/23 03:37 Plt Count 158 10^3/cmm (157-399) 10/08/23 03:37 MPV 9.3 fL (7.4-10.4) 10/08/23 03:37 Neut % (Auto) 65.1 % 10/08/23 03:37 Lymph % (Auto) 19.7 % 10/08/23 03:37 [place] % (Auto) 10.8 % 10/08/23 03:37 Eos % (Auto) 3.2 % 10/08/23 03:37 Baso % (Auto) 0.6 % 10/08/23 03:37 Neut # (Auto) 3.00 10^3/uL (1.8-7.7) 10/08/23 03:37 Lymph # (Auto) 0.9 10^3/uL (0.8-4.8) 10/08/23 03:37 [place] # (Auto) 0.5 10^3/uL (0.2-0.9) 10/08/23 03:37 Eos # (Auto) 0.2 10^3/uL (0.0-0.8) 10/08/23 03:37 Baso # (Auto) 0.0 10^3/uL (0.0-0.1) 10/08/23 03:37 Nucleated RBC % (auto) 0 % 10/08/23 03:37 Nucleated RBCs # 0.0 /100WBC 10/08/23 03:37 PT 13.40 SECONDS (12.1-14.9) 10/08/23 03:37 INR 0.99 (0.8-1.2) 10/08/23 03:37 Sodium 142 mmol/L (136-145) 10/09/23 03:18 Potassium 4.0 mmol/L (3.5-5.1) 10/09/23 03:18 Chloride 102 mmol/L (98-107) 10/09/23 03:18 Carbon Dioxide 27 mmol/L (22-29) 10/09/23 03:18 Anion Gap 17.0 (5-19) 10/09/23 03:18 BUN 6 mg/dL (6-20) 10/09/23 03:18 Creatinine 0.7 mg/dL (0.7-1.2) 10/09/23 03:18 GFR Calculation 118.9 mL/min (90-130) 10/09/23 03:18 Glucose 91 mg/dL (65-115) 10/09/23 03:18 Estimat Average Glucose 123 10/06/23 22:17 Hemoglobin A1c 5.9 % (4.0-6.0) 10/06/23 22:17 Calculated Osmolality 291 mOsm/kg (285-295) 10/09/23 03:18 Calcium 9.3 mg/dL (8.5-10.5) 10/09/23 03:18 Phosphorus 4.6 mg/dL (2.5-4.5) H 10/07/23 04:49 Magnesium 2.0 mg/dL (1.7-2.3) 10/07/23 04:49 Total Bilirubin 0.6 mg/dL (0.15-1.2) 10/09/23 03:18 AST 47 U/L (0-40) H 10/09/23 03:18 ALT 57 U/L (0-41) H 10/09/23 03:18 Alkaline Phosphatase 87 U/L (40-130) 10/09/23 03:18 Troponin T Baseline 15 ng/L (0-15) 10/06/23 16:05 Troponin T 120 Minute 15.61 ng/L (0-15) H 10/06/23 18:32 Delta Troponin T 0.61 ABS# (0-10) 10/06/23 18:32 Troponin T Hi Sens 6Hr 14.49 ng/L (0-15) 10/06/23 22:17 Troponin T Hi Sens 6Hr Delta -0.51 ng/L (0-12) L 10/06/23 22:17 C-Reactive Protein 3.0 mg/L (0.0-4.9) 10/07/23 04:49 Total Protein 6.8 g/dL (6.6-8.7) 10/09/23 03:18 Albumin 4.1 g/dL (3.5-5.2) 10/09/23 03:18 Globulin 2.7 g/dL (1.3-4.6) 10/09/23 03:18 Lipase 645 U/L (13-60) H 10/06/23 16:05 Ethyl Alcohol 348 mg/dL (0-10) H* 10/06/23 16:05 Coronavirus 229E (PCR) Not detected (NOT DETECT) 10/06/23 14:14 Hepatitis A IgM Ab Non-reactive (Nonreactive) 10/08/23 03:37 Hep Bs Antigen Non-reactive (Nonreactive) 10/08/23 03:37 Hep Bs Antibody < 3.5 (11.5-1000) L 10/06/23 22:17 Hep B Core Total Ab Non-reactive (Nonreactive) 10/06/23 22:17 Hep B Core IgM Ab Non-reactive (Nonreactive) 10/08/23 03:37 Hepatitis C Antibody Non-reactive (Nonreactive) 10/08/23 03:37 HIV 1&2 Ab & HIV 1 Ag Non-reactive (Non-Reactiv) 10/06/23 22:17 HIV 1&2 Antibody Non-reactive (Non-Reactiv) 10/06/23 22:17 SARS-CoV-2 (PCR) Not detected (NOT DETECT) 10/06/23 14:14 Vitals Last Vital Signs Temp 97.8 F 10/09/23 12:00 Pulse 84 10/09/23 12:00 Resp 17 10/09/23 12:00 BP 137/89 10/09/23 12:00 Pulse Ox 91 10/09/23 12:00 O2 Del Method Room Air 10/09/23 12:00 O2 Flow Rate 2 10/07/23 19:43 Discharge Plan Discharge Patient Disposition: Home Condition: Stable Prescriptions: New folic acid 1 mg Tablet 1 mg PO DAILY Qty: 30 0RF losartan 50 mg Tablet 50 mg PO DAILY Qty: 30 0RF doxycycline monohydrate 100 mg Tablet 100 mg PO BID Qty: 1 0RF thiamine mononitrate (vit B1) [Vitamin B-1 (mononitrate)] 100 mg Tablet 100 mg PO DAILY Qty: 30 0RF pantoprazole 40 mg Tablet,Delayed Release (Dr/Ec) 40 mg PO BID Qty: 60 0RF Continued clonidine HCl 0.1 mg Tablet 0.1 mg PO TID albuterol sulfate 90 mcg/actuation Hfa Aerosol Inhaler 2 puff INHALATION QID Discontinued pantoprazole 40 mg Tablet,Delayed Release (Dr/Ec) 40 mg PO DAILY Discharge Orders: Discharge Order (Routine); Ordered 10/09/23 Ordered By: Bob Smallwood Discharge Diet: Cardiac Discharge Activity: Increase activity as tolerated Patient Instructions: Doxycycline (By mouth), Thiamine (By mouth), Folic Acid (By mouth), Losartan (By mouth), Pantoprazole (By mouth), Pancreatitis (GEN), Low Fat Diet (GEN), Alcoholic Hepatitis (GEN), Opioid Safety Activity Restrictions/Additional Instructions: Low-fat diet Continue Protonix Encourage fluids Follow-up with your primary care provider 3 to 5 days Take doxycycline with food, avoid significant sun exposure Stop all alcohol, nicotine Discharge Attestations Time Spent in Discharge Care*: greater than 30 min (40) Quality Metrics Clinical Quality Measures [ No reported AMI, CVA or VTE this stay] Coding Level of Care Code 10032 Total time (in minutes) for Discharge: 40 Diagnoses Alcoholic hepatitis without ascites K70.10 Pancreatitis K85.90 Alcohol intoxication F10.929 Time Spent (min) 40
--- NOTE | 2023-10-09 12:39 | PM.DCS ---
Discharge Providers Date of Admission: 10/06/23 18:24 Date of Discharge: October 09, 2023 Attending Provider at Admission: Tabatha Cisneros MD Attending Provider at Discharge: Bob Smallwood MD Diagnoses at Discharge Discharge Diagnosis (1) Alcoholic hepatitis without ascites: Status: Acute (2) Pancreatitis: Status: Acute (3) Alcohol intoxication: Status: Acute Reason for Visit Reason for Visit: abd/chest pain Hospital Course Hospital Course Patient presented to hospital with nausea and vomiting. He had been drinking a significant amount of alcohol. He had a history of pancreatitis in the past. Lipase was elevated. No signs of necrotic pancreas or sepsis. He was treated with IV pain medicine, IV Protonix, fluids. He was treated for alcohol withdrawal. With all of these things he improved significantly and by October 08 he was able to tolerate diet, drinking a significant amount of liquids. He was on doxycycline for a small fluctuant area left chest wall. No fevers were noted. It was thought he could continue to recover at home, avoid all alcohol, continue Protonix twice daily, low-fat diet with gradual increase, and follow-up with his primary care provider. He was able to ask questions and agreed with the plan. Physical Exam Narrative: General Exam no distress Neck is supple Cardiovascular regular rate and rhythm Lungs clear Abdomen is soft Extremities no sinus edema Left chest with small, half centimeter abscess that appears to be resolving. Discharge Data Studies Completed and Pending Completed Studies During Hospitalization Category Date Time Status CT abdomen pelvis wo con [id number] Stat Cat Scan 10/06/23 16:59 Completed XR chest 1V portable [id number] Routine Exams 10/08/23 10:38 Completed XR chest 1V portable [id number] Stat Exams 10/06/23 15:45 [place] liver [id number] Routine Ultrasound 10/07/23 21:34 Completed Pending at discharge Category Date Time Status Blood Culture Stat Lab 10/06/23 16:07 Results Sputum Culture and Gram Stain Stat Lab 10/07/23 10:23 Results Radiology Impressions Abdomen/Pelvis CT 10/06/23 16:59 IMPRESSION: 1. Previous cholecystectomy. Postsurgical change/mesh anterolateral upper right abdominal wall. 2. Hepatic steatosis. Ill-defined hypodensity anterolateral peripheral margin of the right lobe of the liver adjacent to the region of postsurgical changes of the abdominal wall. This may be artifactual secondary to adjacent postsurgical densities in the abdominal wall versus ill-defined hepatic lesion. Consider follow-up nonemergent hepatic ultrasound to ensure no underlying focal abnormality. 3. Bilateral simple renal cysts. 4. Mild colonic diverticula of the left and sigmoid colon without findings of diverticulitis. 5. Multiple small calcifications of the prostate gland. This can be associated with chronic prostatitis. 6. Appearance of mild thickening of the rectosigmoid colon and stomach is likely related to incomplete distension. 7. Mild opacity within the lateral left lung base on single-view chest is attributed to fat pad without findings of infiltrate/atelectasis or effusion within the visualized lung bases. 8. Degenerative disc disease lumbosacral junction. COMMENTS: Consistent with the [employer]'s Incidental Findings Committee white paper (J Am Krish Radiol 2018): Any incidental renal lesion less than 1 cm or classified as too small to characterize, or any incidental cystic renal lesion characterized as simple-appearing, is likely benign. No follow-up imaging is recommended for these lesions per consensus recommendations based on imaging criteria. Liver Ultrasound 10/07/23 21:34 IMPRESSION: 1. There is coarse increased echotexture of the liver overall. This can be seen with steatosis as well as hepatic disease related changes. Consider hepatobiliary profile studies. 2. The previously described hepatic area of concern on CT is obscured currently on ultrasound. Consider MRI of the abdomen with and without contrast for further evaluation. 3. No free fluid collections are appreciated. Chest X-Ray 10/08/23 10:38 IMPRESSION: The lungs appear hyperinflated; query COPD, asthma or other obstructive lung disease. Laboratory Results WBC 4.62 10^3/uL (3.29-11.43) 10/08/23 03:37 RBC 4.70 10^6/uL (3.85-5.65) 10/08/23 03:37 Hgb 15.70 g/dL (11.27-16.99) 10/08/23 03:37 Hct 47.1 % (37-53) 10/08/23 03:37 MCV 100.2 fl (82-101) 10/08/23 03:37 MCH 33.4 pg (27-33) H 10/08/23 03:37 MCHC 33.3 g/dL (30-55) 10/08/23 03:37 RDW 13.9 % (12.1-15.1) 10/08/23 03:37 Plt Count 158 10^3/cmm (157-399) 10/08/23 03:37 MPV 9.3 fL (7.4-10.4) 10/08/23 03:37 Neut % (Auto) 65.1 % 10/08/23 03:37 Lymph % (Auto) 19.7 % 10/08/23 03:37 [place] % (Auto) 10.8 % 10/08/23 03:37 Eos % (Auto) 3.2 % 10/08/23 03:37 Baso % (Auto) 0.6 % 10/08/23 03:37 Neut # (Auto) 3.00 10^3/uL (1.8-7.7) 10/08/23 03:37 Lymph # (Auto) 0.9 10^3/uL (0.8-4.8) 10/08/23 03:37 [place] # (Auto) 0.5 10^3/uL (0.2-0.9) 10/08/23 03:37 Eos # (Auto) 0.2 10^3/uL (0.0-0.8) 10/08/23 03:37 Baso # (Auto) 0.0 10^3/uL (0.0-0.1) 10/08/23 03:37 Nucleated RBC % (auto) 0 % 10/08/23 03:37 Nucleated RBCs # 0.0 /100WBC 10/08/23 03:37 PT 13.40 SECONDS (12.1-14.9) 10/08/23 03:37 INR 0.99 (0.8-1.2) 10/08/23 03:37 Sodium 142 mmol/L (136-145) 10/09/23 03:18 Potassium 4.0 mmol/L (3.5-5.1) 10/09/23 03:18 Chloride 102 mmol/L (98-107) 10/09/23 03:18 Carbon Dioxide 27 mmol/L (22-29) 10/09/23 03:18 Anion Gap 17.0 (5-19) 10/09/23 03:18 BUN 6 mg/dL (6-20) 10/09/23 03:18 Creatinine 0.7 mg/dL (0.7-1.2) 10/09/23 03:18 GFR Calculation 118.9 mL/min (90-130) 10/09/23 03:18 Glucose 91 mg/dL (65-115) 10/09/23 03:18 Estimat Average Glucose 123 10/06/23 22:17 Hemoglobin A1c 5.9 % (4.0-6.0) 10/06/23 22:17 Calculated Osmolality 291 mOsm/kg (285-295) 10/09/23 03:18 Calcium 9.3 mg/dL (8.5-10.5) 10/09/23 03:18 Phosphorus 4.6 mg/dL (2.5-4.5) H 10/07/23 04:49 Magnesium 2.0 mg/dL (1.7-2.3) 10/07/23 04:49 Total Bilirubin 0.6 mg/dL (0.15-1.2) 10/09/23 03:18 AST 47 U/L (0-40) H 10/09/23 03:18 ALT 57 U/L (0-41) H 10/09/23 03:18 Alkaline Phosphatase 87 U/L (40-130) 10/09/23 03:18 Troponin T Baseline 15 ng/L (0-15) 10/06/23 16:05 Troponin T 120 Minute 15.61 ng/L (0-15) H 10/06/23 18:32 Delta Troponin T 0.61 ABS# (0-10) 10/06/23 18:32 Troponin T Hi Sens 6Hr 14.49 ng/L (0-15) 10/06/23 22:17 Troponin T Hi Sens 6Hr Delta -0.51 ng/L (0-12) L 10/06/23 22:17 C-Reactive Protein 3.0 mg/L (0.0-4.9) 10/07/23 04:49 Total Protein 6.8 g/dL (6.6-8.7) 10/09/23 03:18 Albumin 4.1 g/dL (3.5-5.2) 10/09/23 03:18 Globulin 2.7 g/dL (1.3-4.6) 10/09/23 03:18 Lipase 645 U/L (13-60) H 10/06/23 16:05 Ethyl Alcohol 348 mg/dL (0-10) H* 10/06/23 16:05 Coronavirus 229E (PCR) Not detected (NOT DETECT) 10/06/23 14:14 Hepatitis A IgM Ab Non-reactive (Nonreactive) 10/08/23 03:37 Hep Bs Antigen Non-reactive (Nonreactive) 10/08/23 03:37 Hep Bs Antibody < 3.5 (11.5-1000) L 10/06/23 22:17 Hep B Core Total Ab Non-reactive (Nonreactive) 10/06/23 22:17 Hep B Core IgM Ab Non-reactive (Nonreactive) 10/08/23 03:37 Hepatitis C Antibody Non-reactive (Nonreactive) 10/08/23 03:37 HIV 1&2 Ab & HIV 1 Ag Non-reactive (Non-Reactiv) 10/06/23 22:17 HIV 1&2 Antibody Non-reactive (Non-Reactiv) 10/06/23 22:17 SARS-CoV-2 (PCR) Not detected (NOT DETECT) 10/06/23 14:14 Vitals Last Vital Signs Temp 97.8 F 10/09/23 12:00 Pulse 84 10/09/23 12:00 Resp 17 10/09/23 12:00 BP 137/89 10/09/23 12:00 Pulse Ox 91 10/09/23 12:00 O2 Del Method Room Air 10/09/23 12:00 O2 Flow Rate 2 10/07/23 19:43 Discharge Plan Discharge Patient Disposition: Home Condition: Stable Prescriptions: New losartan 50 mg Tablet 50 mg PO DAILY Qty: 30 0RF doxycycline monohydrate 100 mg Tablet 100 mg PO BID Qty: 1 0RF pantoprazole 40 mg Tablet,Delayed Release (Dr/Ec) 40 mg PO BID Qty: 60 0RF folic acid 1 mg Tablet 1 mg PO DAILY Qty: 30 0RF Vitamin B-1 (mononitrate) 100 mg Tablet 100 mg PO DAILY Qty: 30 0RF Continued clonidine HCl 0.1 mg Tablet 0.1 mg PO TID albuterol sulfate 90 mcg/actuation Hfa Aerosol Inhaler 2 puff INHALATION QID Discontinued pantoprazole 40 mg Tablet,Delayed Release (Dr/Ec) 40 mg PO DAILY Discharge Orders: Discharge Order (Routine); Ordered 10/09/23 Ordered By: Bob Smallwood Discharge Diet: Cardiac Discharge Activity: Increase activity as tolerated Patient Instructions: Doxycycline (By mouth), Thiamine (By mouth), Folic Acid (By mouth), Losartan (By mouth), Pantoprazole (By mouth), Pancreatitis (GEN), Low Fat Diet (GEN), Alcoholic Hepatitis (GEN), Opioid Safety Activity Restrictions/Additional Instructions: Low-fat diet Continue Protonix Encourage fluids Follow-up with your primary care provider 3 to 5 days Take doxycycline with food, avoid significant sun exposure Stop all alcohol, nicotine Discharge Attestations Time Spent in Discharge Care*: greater than 30 min Quality Metrics Clinical Quality Measures [ No reported AMI, CVA or VTE this stay] Coding Level of Care Code 92364 Total time (in minutes) for Discharge: 38 Diagnoses Alcoholic hepatitis without ascites K70.10 Pancreatitis K85.90 Alcohol intoxication F10.929
== END 2023-10-09 13:45 | disposition home or self-care (01) | DRG 432 ==
LOC: ER 17:13 → MEDSURG 18:24
PROVIDERS: Family Medicine; Admitting Provider Internal Medicine; Emergency Provider Family Medicine; Visit Provider Internal Medicine
DX: K70.10 Alcoholic hepatitis without ascites (principal); K85.20 Alcohol induced acute pancreatitis without necrosis or infection; F10.129 Alcohol abuse with intoxication, unspecified; Y90.9 Presence of alcohol in blood, level not specified; K29.20 Alcoholic gastritis without bleeding; F17.210 Nicotine dependence, cigarettes, uncomplicated; I10 Essential (primary) hypertension; I95.9 Hypotension, unspecified; Z11.52 Encounter for screening for COVID-19
CPT/HCPCS: 36415; 71045; 74176; 76705; 80053; 80074; 80307; 83036; 83690; 83735; 84100; 84484; 85025; 85610; 86140; 86705; 86706; 86709; 86803; 87040; 87070; 87205; 87340; 87635; 87806; 93005; 94640; 96365; 96366; 96372; 96375; 96376; 99285; J1170; J1650; J1956; J2060; J2270; J2405; J2470; J3411; J3490; J7121